=== PATIENT | male | born 1960 | race Caucasian/White ===

== ENCOUNTER → 2016-10-28 | Outpatient (CLI) | payer BC | LOC: FIMAGING 10:12 | PROVIDERS: ATTEND Orthopaedic Surgery Orthopaedic Surgery of the Spine | DX: Z98.1 Arthrodesis status (principal); M43.16 Spondylolisthesis, lumbar region ==

== ENCOUNTER → 2016-12-06 | Outpatient (CLI) | payer BC | LOC: CIMAGING 15:55 | PROVIDERS: ATTEND Orthopaedic Surgery Orthopaedic Surgery of the Spine | DX: Z09 Encounter for follow-up examination after completed treatment for conditions other than malignant neoplasm (principal); Z98.1 Arthrodesis status | CPT/HCPCS: 72100-PO ==

== ENCOUNTER → 2017-01-03 | Outpatient (CLI) | payer BC | LOC: CIMAGING 15:33 | PROVIDERS: ATTEND Orthopaedic Surgery Orthopaedic Surgery of the Spine | DX: Z09 Encounter for follow-up examination after completed treatment for conditions other than malignant neoplasm (principal); Z98.1 Arthrodesis status | CPT/HCPCS: 72100-PO ==